=== PATIENT | female | born 1995 | race Caucasian/White ===

== ENCOUNTER 2017-05-03 12:08 | Emergency (ER) | payer BC ==
--- NOTE | 2017-05-03 12:40 | C.PDOC ---
History Of Present Illness 21-YEAR-OLD FEMALE, PRESENTS TO THE EMERGENCY DEPARTMENT WITH COMPLAINTS OF LEFT PARASTERNAL PAIN ONGOING X4 DAYS. PAIN IS INTERMITTENT WORSE W MOVING ARM AND DEEP BREATHS. NO JACKSON. LUNGS CLR EXAM REPRODUCIBLE PAIN W LEFT PECTORAL EXTENSION. MILD LOCAL TENDERNESS TO L PARASTERNAL AREA Time Seen by Provider: 05/03/17 12:16 History Per: Patient History/Exam Limitations: no limitations Past Medical History Reviewed: Historical Data, Nursing Documentation, Vital Signs Vital Signs: Last Vital Signs Temp 98 F 05/03/17 12:10 Pulse 80 05/03/17 12:10 Resp 16 05/03/17 12:10 BP 130/80 05/03/17 12:10 Pulse Ox 99 05/03/17 12:10 Family History: States: No Known Family Hx - Social History Hx Tobacco Use: No Hx Alcohol Use: No Hx Substance Use: No - Immunization History Hx Tetanus Toxoid Vaccination: No Hx Influenza Vaccination: No Hx Pneumococcal Vaccination: No Review Of Systems Constitutional: Negative for: Fever, Chills ENT: Negative for: Ear Pain, Nose Congestion, Throat Pain Cardiovascular: Positive for: Chest Pain. Negative for: Palpitations, Edema, Light Headedness Respiratory: Positive for: Pleuritic Pain. Negative for: Cough, Shortness of Breath Gastrointestinal: Negative for: Nausea, Vomiting Musculoskeletal: Negative for: Neck Pain, Back Pain Skin: Negative for: Rash Neurological: Negative for: Weakness, Headache, Dizziness Physical Exam - Physical Exam Appears: Well, Non-toxic, No Acute Distress Skin: Normal Color, Warm, Dry, No Rash Head: Normacephalic Eye(s): bilateral: PERRL Nose: Normal Lips: Normal Appearing Neck: Normal ROM Chest: Tenderness (21-YEAR-OLD FEMALE, PRESENTS TO THE EMERGENCY DEPARTMENT WITH COMPLAINTS OF LEFT PARASTERNAL PAIN ONGOING X4 DAYS. PAIN IS INTERMITTENT WORSE W MOVING ARM AND DEEP BREATHS.) Cardiovascular: Rhythm Regular, No Murmur Respiratory: Normal Breath Sounds, No Decreased Breath Sounds, No Accessory Muscle Use Extremity: Normal ROM, No Deformity, No Swelling Neurological/Psych: Oriented x3, Normal Speech ED Course And Treatment ECG: Interpreted By Me ECG Rhythm: Sinus Rhythm ECG Interpretation: Normal Rate From EC Disposition Counseled Patient/Family Regarding: Studies Performed, Diagnosis, Need For Followup - Disposition Referrals: YOUR,PMD [Other] Disposition: HOME/ ROUTINE Disposition Time: 12:39 Condition: GOOD Additional Instructions: TAKE MOTRIN DIRECTED FOR PAIN. FOLLOW UP WITH YOUR PMD Instructions: Chest Pain That Is Not Caused by the Heart (DC) Forms: [facility] (Serbian) - Clinical Impression Clinical Impression: Chest wall pain - Scribe Statement The provider has reviewed the documentation as recorded by the Scribe (NEETA HERNANDEZ) All medical record entries made by the Scribe were at my direction and personally dictated by me. I have reviewed the chart and agree that the record accurately reflects my personal performance of the history, physical exam, medical decision making, and the department course for this patient. I have also personally directed, reviewed, and agree with the discharge instructions and disposition.
[2017-05-03 12:52] VITALS: BP 130/80; PULSE 80; RESP 16; TEMP 98; O2SAT 99
== END 2017-05-03 12:50 | disposition home or self-care (01) ==
LOC: C.ER 12:08
DX: R07.89 Other chest pain (principal)